=== PATIENT | female | born 1955 | race Caucasian/White ===

== ENCOUNTER 2018-03-22 01:20 | Emergency (ER) | payer OTHER ==
[~2018-03-22] VITALS: Ht 160 cm; Wt 70.3 kg
[~2018-03-22 01:20] MED LIST: CETI-17 PO; CETI10CA PO; LISI2.5T PO
--- NOTE | 2018-03-22 01:38 | EKG ---
[address] [address] Test Date: 2018-03-22 Test Time: 01:29:29 Pat Name: MARINO SANDERSON Department: Room: Gender: F Rn Relief Charge: : 1955 Requested By: MIKA CANSECO Order Number: [id number] Reading MD: Ricardo Wild MD Measurements Intervals [place] Rate: 82 P: 65 LA: 164 QRS: 8 QRSD: 82 T: 41 QT: 332 QTc: 391 Interpretive Statements SINUS RHYTHM Electronically Signed On 03-22-2018 10:26:21 CDT by Ricardo Wild MD
[2018-03-22 01:56] LABS: BASO % 0 % (0-3); EOS # 0.3 x10^3/uL (0.0-0.7); EOS % 3 % (0-3); HEMATOCRIT 39.1 % (36.0-47.0); HEMOGLOBIN 13.5 g/dL (12.0-15.5); LYMPH % 44 % (24-48); MEAN CORPUSCULAR HEMOGLOBIN 32 pg (25-35); MEAN CORPUSCULAR HGB CONC 35 g/dL (31-37); MEAN CORPUSCULAR VOLUME 94 fL (79-100); MONO # 0.7 x10^3/uL (0.0-1.1); MONO % 8 % (0-9); NEUT # 4.2 x10^3uL (1.8-7.7); NEUT % 45 % (31-73); PLATELET COUNT 212 x10^3/uL (140-400); RED BLOOD COUNT 4.17 x10^6/uL (3.50-5.40); RED CELL DISTRIBUTION WIDTH 13.2 % (11.5-14.5); WHITE BLOOD COUNT 9.2 x10^3/uL (4.0-11.0)
[2018-03-22] MEDS: NITROGLYCERIN OINT 1 GM PACKET. TP ONE (02:00)
[2018-03-22] MEDS: IV RINGERS SOLUTION,LACTATED 1,000 ML IV SCH (02:03)
[2018-03-22] MEDS: ASPIRIN 81 MG TAB.CHEW PO ONE (02:04)
--- NOTE | 2018-03-22 02:10 | RAD ---
Chest PA and lateral: Reason for examination: Chest pain with palpitations. The heart size is normal. Mediastinum is unremarkable. Lung loyola are clear. No acute bony abnormalities are seen. Impression: No acute cardiopulmonary disease. Electronically signed by: Skylar Butcher MD (03/22/2018 2:05 AM) [id number]
--- NOTE | 2018-03-22 02:13 | ED.ADGEN ---
Past History Past Medical History: Hypertension, Other Past Surgical History: Tonsillectomy, Other Smoking: Non-smoker Alcohol Use: None Drug Use: None Adult General Chief Complaint Chief Complaint ".. I felt my heat flutter tonight .. and maybe a little chest discomfort.. my in gone on a fishing trip to [place].. and I got worried and came in..." HPI HPI Patient is a 62 year old female who presents with female with above hx and complaints of dysrhythmia and chest discomfort. Pt. Currently followed with cardiology Dr. Melton. Pt. has had a Holter monitor study, those results are not back yet. No hx of change in meds. No trauma or travel or ill contacts. Pt. does have a hx . of HTN. Patient currently states her discomfort has resolved and her chest. Has been no change in her medicines. No history of trauma. Denies immunosuppression. Patient does give a history of some anxiety. Review of Systems Review of Systems Constitutional: Denies fever or chills [] Eyes: Denies change in visual acuity, redness, or eye pain [] HENT: Denies nasal congestion or sore throat [] Respiratory: Denies cough or shortness of breath [] Cardiovascular: No additional information not addressed in HPI [] GI: Denies abdominal pain, nausea, vomiting, bloody stools or diarrhea [] : Denies dysuria or hematuria [] Musculoskeletal: Denies back pain or joint pain [] Integument: Denies rash or skin lesions [] Neurologic: Denies headache, focal weakness or sensory changes [] Endocrine: Denies polyuria or polydipsia [] All other systems were reviewed and found to be within normal limits, except as documented in this note. Family History Family History Noncontributory Current Medications Current Medications Current Medications Medications (Trade) Dose Ordered Sig/Haile Start Time Stop Time Status Last Admin Dose Admin Aspirin (Children'S Aspirin) 324 mg 1X ONCE 03/22/18 02:00 03/22/18 02:02 DC 03/22/18 02:04 324 MG Lactated Ringer's 1,000 ml @ 1,000 mls/hr Q1H 03/22/18 02:00 03/22/18 02:59 DC 03/22/18 02:03 1,000 MLS/HR Nitroglycerin (Nitro-Bid Oint) 1 inch 1X ONCE 03/22/18 02:00 03/22/18 02:02 DC 03/22/18 02:00 1 INCH See nursing for home meds Allergies Allergies Allergies Coded Allergies Type Severity Reaction Last Updated Verified Iodinated Contrast- Oral and IV Dye Allergy Unknown DRANK FOR RENAL SCAN AND BROKE OUT IN HIVES ?IODINE IN DRINK 03/22/18 Yes Physical Exam Physical Exam Constitutional:, no acute distress, non-toxic appearance. [] HENT: Normocephalic, atraumatic, bilateral external ears normal, oropharynx moist, no oral exudates, nose normal. [] Eyes: PERRLA, EOMI, conjunctiva normal, no discharge. [] Neck: Normal range of motion, no tenderness, supple, no stridor. [] Cardiovascular:Heart rate regular rhythm, no murmur [] Lungs & Thorax: Bilateral breath sounds equal at apex on auscultation [] Abdomen: Bowel sounds normal, soft, no tenderness, no masses, no pulsatile masses. [] Skin: Warm, dry, no erythema, no rash. [] Back: No tenderness, no CVA tenderness. [] Extremities: No tenderness, no cyanosis, no clubbing, ROM intact, no edema. [] Neurologic: Alert and oriented X 3, normal motor function, normal sensory function, no focal deficits noted. [] Psychologic: Affect anxious, judgement normal, mood normal. [] Current Patient Data Vital Signs Vital Signs Date Time Temp Pulse Resp B/P (MAP) Pulse Ox O2 Delivery O2 Flow Rate FiO2 03/22/18 02:00 86 178/108 03/22/18 01:21 98.1 98 Room Air Lab Results Laboratory Tests Test 03/22/18 01:40 03/22/18 02:15 White Blood Count 9.2 x10^3/uL (4.0-11.0) Red Blood Count 4.17 x10^6/uL (3.50-5.40) Hemoglobin 13.5 g/dL (12.0-15.5) Hematocrit 39.1 % (36.0-47.0) Mean Corpuscular Volume 94 fL (79-100) Mean Corpuscular Hemoglobin 32 pg (25-35) Mean Corpuscular Hemoglobin Concent 35 g/dL (31-37) Red Cell Distribution Width 13.2 % (11.5-14.5) Platelet Count 212 x10^3/uL (140-400) Neutrophils (%) (Auto) 45 % (31-73) Lymphocytes (%) (Auto) 44 % (24-48) Monocytes (%) (Auto) 8 % (0-9) Eosinophils (%) (Auto) 3 % (0-3) Basophils (%) (Auto) 0 % (0-3) Neutrophils # (Auto) 4.2 x10^3uL (1.8-7.7) Lymphocytes # (Auto) 4.0 x10^3/uL (1.0-4.8) Monocytes # (Auto) 0.7 x10^3/uL (0.0-1.1) Eosinophils # (Auto) 0.3 x10^3/uL (0.0-0.7) Basophils # (Auto) 0.0 x10^3/uL (0.0-0.2) Prothrombin Time 10.3 SEC (9.4-11.4) Prothrombin Time INR 1.0 (0.9-1.1) PTT 26 SEC (23-33) D-Dimer (Henna) 0.47 mg/L (0.00-0.50) Sodium Level 137 mmol/L (136-145) Potassium Level 3.6 mmol/L (3.5-5.1) Chloride Level 102 mmol/L (98-107) Carbon Dioxide Level 30 mmol/L (21-32) Anion Gap 5 (6-14) L Blood Urea Nitrogen 20 mg/dL (7-20) Creatinine 1.0 mg/dL (0.6-1.0) Estimated GFR (Cockcroft-Gault) 55.8 Glucose Level 108 mg/dL (70-99) H Calcium Level 10.5 mg/dL (8.5-10.1) H Magnesium Level 2.0 mg/dL (1.8-2.4) Total Bilirubin 0.6 mg/dL (0.2-1.0) Direct Bilirubin 0.1 mg/dL (0.0-0.2) Aspartate Amino Transferase (AST) 19 U/L (15-37) Alanine Aminotransferase (ALT) 21 U/L (14-59) Alkaline Phosphatase 110 U/L (46-116) Creatine Kinase 109 U/L (26-192) Creatine Kinase MB (Mass) 1.5 ng/mL (0.0-3.6) Creatine Kinase MB Relative Index 1.4 % (0-4) Troponin I Quantitative < 0.017 ng/mL (0-0.055) TW-Wkc-P-Type Natriuretic Peptide 50 pg/mL (0-124) Total Protein 8.1 g/dL (6.4-8.2) Albumin 3.5 g/dL (3.4-5.0) Lipase 146 U/L (73-393) Urine Collection Type Unknown Urine Color Yellow Urine Clarity Clear Urine pH 5.5 Urine Specific [place] 1.010 Urine Protein Neg (NEG-TRACE) Urine Glucose (UA) Neg mg/dL (NEG) Urine Ketones (Stick) Neg mg/dL (NEG) Urine Blood Small (NEG) Urine Nitrite Neg (NEG) Urine Bilirubin Neg (NEG) Urine Urobilinogen Dipstick 0.2 mg/dL (0.2 mg/dL) Urine Leukocyte Esterase Neg (NEG) Urine RBC Rare /HPF (0-2) Urine WBC Rare /HPF (0-4) Urine Squamous Epithelial Cells Occ /LPF Urine Bacteria 0 /HPF (0-FEW) Urine Opiates Screen Neg (NEG) Urine Methadone Screen Neg (NEG) Urine Barbiturates Neg (NEG) Urine Phencyclidine Screen Neg (NEG) Urine Amphetamine/Methamphetamine Neg (NEG) Urine Benzodiazepines Screen Neg (NEG) Urine Cocaine Screen Neg (NEG) Urine Cannabinoids Screen Neg (NEG) Urine Ethyl Alcohol Neg (NEG) EKG EKG My interpretation of EKG shows a sinus rhythm at 82 bpm. No acute morphology appreciated[] Radiology/Procedures Radiology/Procedures My interpretation of chest x-ray shows no acute cardiopulmonary findings. Does have some degenerative joint changes.[] Course & Med Decision Making Course & Med Decision Making Pertinent Labs and Imaging studies reviewed. (See chart for details) Patient currently declining admission. Patient seems aware of risk of limited workup for her chest discomfort and dysrhythmia. UCAR capacity. Pt. encourage to take daily ASA as directed. Keep followup with primary. [] Final Impression Final Impression 1. Chest pain 2. Complaints of dysrhythmia[] 3. Anxiety Dragon Disclaimer Dragon Disclaimer This electronic medical record was generated, in whole or in part, using a voice recognition dictation system. MIKA CANSECO MD Mar 22, 2018 02:13
[2018-03-22 02:17] LABS: ALBUMIN 3.5 g/dL (3.4-5.0); CALCIUM 10.5 mg/dL (8.5-10.1); DIRECT BILIRUBIN 0.1 mg/dL (0.0-0.2); GFR 55.8; POTASSIUM 3.6 mmol/L (3.5-5.1); TOTAL BILIRUBIN 0.6 mg/dL (0.2-1.0); TOTAL PROTEIN 8.1 g/dL (6.4-8.2)
[2018-03-22 02:38] LABS: BARBITURATES NEG (NEG); BENZODIAZEPINES NEG (NEG); CANNABINOIDS NEG (NEG); COCAINE NEG (NEG); METHADONE NEG (NEG); OPIATES NEG (NEG); PHENCYCLIDINE NEG (NEG)
[2018-03-22 02:40] LABS: BACTERIA,URINE 0 /HPF (0-FEW); BILIRUBIN,URINE NEG (NEG); CLARITY,URINE CLEAR; COLOR,URINE YELLOW; GLUCOSE,URINE NEG (NEG); NITRITE,URINE NEG (NEG); RBC,URINE RARE /HPF (0-2); SQUAMOUS EPITHELIAL CELL,UR OCC /LPF; UROBILINOGEN,URINE 0.2 mg/dL (0.2 mg/dL); WBC,URINE RARE /HPF (0-4)
[2018-03-22 02:41] LABS: AMPHETAMINE/METHAMPHETAMINE NEG (NEG)
[2018-03-22 03:20] VITALS: BP 113/70
== END 2018-03-22 03:50 | disposition home or self-care (01) ==
LOC: ER 01:20
DX: R07.89 Other chest pain (principal); F41.9 Anxiety disorder, unspecified; I49.9 Cardiac arrhythmia, unspecified; I10 Essential (primary) hypertension; Z91.041 Radiographic dye allergy status
CPT/HCPCS: 36415; 71046; 80048; 80076; 80307; 81001; 82553; 83690; 83735; 83880; 84443; 84484; 85025; 85379; 85610; 85730; 93005; 99285; J7120; 96360; G0479

== ENCOUNTER → 2021-09-17 | Outpatient (CLI) | payer MEDICARE, OTHER ==
[~2021-09-17] MED LIST changes: -LISI2.5T PO; +LISI2.5T12 PO
--- NOTE | 2021-09-17 10:52 | RAD ---
EXAM: DUAL ENERGY X-RAY ABSORPTIOMETRY (DEXA). HISTORY: Postmenopausal screening. FINDINGS: The lowest measured T-score is -2.4 in the lumbar spine, based on a bone mineral density of 0.886 g/cm^2. Refer to the worksheets for full detail. No comparison examinations are available. IMPRESSION: 1. Low bone mass. Bone mineral density yields a T-score between -1.0 and -2.5. Fracture risk is incre ased. 2. FRAX report: Not calculated. METHODOLOGY: Dual energy x-ray absorptiometry was performed to measure bone mineral density. The foll owing analysis is based on the 2019 Official Positions of the International Society for Clinical Dens itometry: Measurements of the hips and the average of L1-L4 are preferred. When the spine and/or hip cannot be feasibly measured or interpreted, or in the setting of hyperparathyroidism, distal radial bone minera l density may be measured. The lumbar spine T-score is based on the average bone mineral density of L1-L4. In the setting of art ifact or anatomic abnormality, some lumbar levels may be excluded, and the remaining levels used for calculation. A single lumbar level is not used for diagnosis, and if only a single level is available for assessment, another anatomic site will be used to assign a diagnosis. The hip T-score is based on the bone mineral density measurement of the femoral neck or total proxima l femur of either side, whichever is lowest. Bilateral mean values are not used for diagnosis. The forearm T-score is derived from 33% of the distal radius of the nondominant forearm. Electronically signed by: Dilcia Vera MD (09/17/2021 10:50 AM) [id number]
--- NOTE | 2021-09-22 12:58 | RAD ---
DATE: 09/21/2021 EXAM: MG BILAT SCREEN HISTORY: Screening COMPARISON: 10/14/2020 and 05/16/2019 This study was interpreted with the benefit of Computerized Aided Detection (CAD). Breast Density: SCATTERED The breast parenchyma shows scattered fibroglandular densities. Breast pare nchyma level B. FINDINGS: There is a 1 cm lobulated asymmetry in the right breast slightly lateral to the nipple and 5 cm posterior to the nipple on CC view. No clear correlation on MLO view. There are benign-appearing calcifications seen bilaterally. IMPRESSION: 1 cm lobulated asymmetry in the right breast. Recommend spot compression CC view and poss ible ultrasound to evaluate. BI-RADS CATEGORY: 0 INCOMPLETE: NEEDS ADDITIONAL IMAGING EVALUATION AND/OR PRIOR MAMMOGRAMS FOR CONCEPCIÓN RISON. RECOMMENDED FOLLOW-UP: ADD ADDITIONAL IMAGING PQRS compliance statement: Patient information was entered into a reminder system with a target due d ate for the next mammogram. Mammography is a sensitive method for finding small breast cancers, but it does not detect them all a nd is not a substitute for careful clinical examination. A negative mammogram does not negate a clin ically suspicious finding and should not result in delay in biopsying a clinically suspicious abnorma lity. "Our facility is accredited by the [employer] Mammography Program." Electronically signed by: Shahana Santiago MD (09/22/2021 12:55 PM) [id number]
== END ==
LOC: MAMMO 10:01
PROVIDERS: ATTEND Family Medicine
DX: Z12.31 Encounter for screening mammogram for malignant neoplasm of breast (principal); M85.80 Other specified disorders of bone density and structure, unspecified site; Z78.0 Asymptomatic menopausal state
CPT/HCPCS: 77063; 77067; 77080

== ENCOUNTER → 2021-10-13 | Outpatient (CLI) | payer MEDICARE, OTHER ==
--- NOTE | 2021-10-13 10:46 | RAD ---
PROCEDURE: MG DIAGNOSTICUNILAT MAMMO, US BREAST LTD RT HISTORY: The patient is 66 years old and is seen for Reason: ABNORMAL MAMM CALL BACK / Spl. Instructi ons: / History: . COMPARISON: September 17, 2021, October 14, 2020 and May 16, 2019. TECHNIQUE: Right breast CC compression views. Right breast targeted ultrasound. DENSITY: There are scattered fibroglandular densities. FINDINGS: Right mammogram: Persistent lobulated asymmetry within the right medial retroareolar breast on CC vie w. The asymmetry is overall similar compared to 2019. Right ultrasound: Cluster of cysts within the right breast 1:00 position 1 cm from the nipple measure s 1.2 x 1.0 x 0.7 cm. Mildly prominent retroareolar ducts. IMPRESSION: 1. 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 Recommend return to annual screening. Recommend annual screening mammograms per [employer] guidelines. She will be due in one year. BI-RADS category 2 Benign Patient entered into a reminder system for annual screening mammogram. Electronically signed by: Chinedu Aguila DO (10/13/2021 10:42 AM) [id number]
== END ==
LOC: MAMMO 09:41
PROVIDERS: ATTEND Family Medicine
DX: N60.01 Solitary cyst of right breast (principal); R92.2 Inconclusive mammogram
CPT/HCPCS: 76642; 77065